=== PATIENT | male | born 1930 ===

== ENCOUNTER 2017-07-02 13:03 | Emergency (ER) | payer MEDICARE, MEDICAID ==
[2017-07-02 13:19] VITALS: BP 171/68; PULSE 76; RESP 18; TEMP 97.5; O2SAT 100
--- NOTE | 2017-07-02 14:08 | C.PDOC ---
History Of Present Illness 86 yr old male presents to the ER with complaints of painful dysuria, dribbling and mild incontinence for 1 day. Patient denies previsou history of similar symptoms, fever, nausea, vomiting, abdominal pain, diarrhea, hematuria, weakness or numbness. Time Seen by Provider: 07/02/17 13:29 Chief Complaint (Nursing): Male Genitourinary History Per: Patient History/Exam Limitations: no limitations Onset/Duration Of Symptoms: Days (1) Past Medical History Reviewed: Historical Data, Nursing Documentation, Vital Signs Vital Signs: Last Vital Signs Temp 97.5 F L 07/02/17 13:15 Pulse 76 07/02/17 13:15 Resp 18 07/02/17 13:15 BP 171/68 H 07/02/17 13:15 Pulse Ox 100 07/02/17 14:09 - Medical History PMH: HTN Family History: States: No Known Family Hx - Social History Hx Alcohol Use: No Hx Substance Use: No - Immunization History Hx Tetanus Toxoid Vaccination: No Hx Influenza Vaccination: Yes Hx Pneumococcal Vaccination: No Review Of Systems Except As Marked, All Systems Reviewed And Found Negative. Constitutional: Negative for: Fever Gastrointestinal: Negative for: Nausea, Vomiting, Abdominal Pain, Diarrhea Genitourinary: Positive for: Dysuria, Incontinence (mild). Negative for: Hematuria Neurological: Negative for: Weakness, Numbness Physical Exam - Physical Exam Appears: Non-toxic, No Acute Distress, Other (elderly male) Skin: Warm, Dry, No Rash Respiratory: Normal Breath Sounds, No Rales, No Rhonchi, No Stridor Gastrointestinal/Abdominal: Normal Exam, Soft, No Tenderness, No Guarding, No Rebound, Other (no superapubic fullness) Extremity: Normal ROM, No Swelling Neurological/Psych: Oriented x3, Normal Speech, Normal Motor ED Course And Treatment - Laboratory Results Lab Interpretation: Abnormal (UA 1400 WBC's, RBC's 732) O2 Sat by Pulse Oximetry: 100 (RA) Pulse Ox Interpretation: Normal Progress Note: Bladder Scan, 87CC (very little). Pyridium, keflex (Ceftin not available) pyridium, Flomax Reevaluation Time: 15:16 Reassessment Condition: Unchanged - Physician Consult Information Outcome Of Conversation: 1510: d/w Dr. Kang- Urologist- advises CEftin 500 PO BID x 2 weeks, UC, pyridium, Flomax (no retention) and to f/u in office after 07/18 Medical Decision Making Medical Decision Making: PLAN: * Bladder Scan * Urinalysis UTI vs prostate inflammation/infection no systemic symptoms PO regimen Disposition Doctor Will See Patient In The: Office Counseled Patient/Family Regarding: Studies Performed, Diagnosis - Disposition Disposition: HOME/ ROUTINE Disposition Time: 15:17 Condition: GOOD Forms: [facility] (Mosotho) - Clinical Impression Clinical Impression: UTI (urinary tract infection) - Scribe Statement The provider has reviewed the documentation as recorded by the Eliza Mccall Provider Attestation: All medical record entries made by the Vineetibe were at my direction and personally dictated by me. I have reviewed the chart and agree that the record accurately reflects my personal performance of the history, physical exam, medical decision making, and the department course for this patient. I have also personally directed, reviewed, and agree with the discharge instructions and disposition.
[2017-07-02 15:01] LABS: SQUAMOUS EPITHIAL 1 /hpf (0-5); URINE BACTERIA RARE (<OCC); URINE BILIRUBIN NEGATIVE (NEGATIVE); URINE BLOOD 3+ (NEGATIVE); URINE CLARITY Hazy (Clear); URINE COLOR Yellow (YELLOW); URINE GLUCOSE (UA) NORMAL (Normal); URINE LEUKOCYTE ESTERASE 3+ Leu/uL (Negative); URINE NITRATE NEGATIVE (NEGATIVE); URINE PROTEIN 2+ mg/dL (NEGATIVE); URINE UROBILINOGEN NORMAL mg/dL (0.2-1.0); WBC CLUMPS FEW /hpf
== END 2017-07-02 16:01 | disposition home or self-care (01) ==
LOC: C.ER 13:03
DX: N39.0 Urinary tract infection, site not specified (principal)